=== PATIENT | male | born 1970 ===

== ENCOUNTER 2021-11-01 10:18 | Inpatient (IN) | payer OTHER ==
[~2021-11-01] VITALS: Ht 172.7 cm; Wt 73.1 kg
[2021-11-01 10:50] LABS: BASOPHILS ABSOLUTE AUTO 0.11 K/mm3 (0.00-0.23); BASOPHILS PERCENT AUTO 1 % (0-2); EOSINOPHILS ABSOLUTE AUTO 0.29 K/mm3 (0.00-0.68); EOSINOPHILS PERCENT AUTO 2 % (0-6); Hematocrit 41.6 % (37.0-53.0); IMMATURE GRAN ABSOLUTE AUTO 0.04 K/mm3 (0.00-0.10); IMMATURE GRAN PERCENT AUTO 0 % (0-1); LYMPHOCYTES ABSOLUTE AUTO 1.94 K/mm3 (0.84-5.20); LYMPHOCYTES PERCENT AUTO 16 % (21-46); MONOCYTES ABSOLUTE AUTO 0.74 K/mm3 (0.16-1.47); MONOCYTES PERCENT AUTO 6 % (4-13); Mean Corpuscular HGB 28.4 pg (26.0-34.0); Mean Corpuscular HGB Conc 33.7 g/dL (31.5-36.5); Mean Corpuscular Volume 84 fL (80-100); NEUTROPHILS ABSOLUTE AUTO 9.11 K/mm3 (1.96-9.15); NEUTROPHILS PERCENT AUTO 74 % (41-73); Platelet Count 354 K/mm3 (150-400); RDW Coefficient Variation 14.8 % (11.7-14.2); RDW Standard Deviation 44.6 fL (35.1-46.3); Red Blood Cell Count 4.93 M/mm3 (4.30-5.90); White Blood Cell Count 12.23 K/mm3 (4.00-11.30)
[2021-11-01 11:12] LABS: Albumin, Blood 3.6 g/dL (3.4-5.0); Albumin/Globulin Ratio 0.8 (0.8-1.8); Bilirubin, Total 1.1 mg/dL (0.1-1.0); Bun/Creatinine Ratio 17.7 (12.0-20.0); Calcium, Blood 8.7 mg/dL (8.5-10.1); Creatinine, Blood 1.86 mg/dL (0.60-1.20); Globulin, Blood 4.8 g/dL (2.2-4.0); Magnesium, Blood 2.4 mg/dL (1.6-2.4); Potassium, Blood 3.2 mmol/L (3.5-5.5); Total Protein, Blood 8.4 g/dL (6.4-8.2)
[2021-11-01 12:12] LABS: U Amphetamine Screen DETECTED; U Barbituate Screen Not Detected; U Benzodiazapine Screen Not Detected; U Buprenorphine Screen Not Detected; U Cannabinoids Screen DETECTED; U Cocaine Screen Not Detected; U Methadone Screen Not Detected; U Methamphetamine Screen DETECTED; U Opiates Screen Not Detected; U Oxycodone Screen Not Detected; U Phencyclidine Screen Not Detected; U Propoxyphene Screen Not Detected
[2021-11-01] MEDS ORDERED: AMLO10 PO (12:39)
[2021-11-01] MEDS ORDERED: ASPI81CH (12:39)
[2021-11-01] MEDS ORDERED: HYDRA25 PO ×2 (12:40→12:41)
[2021-11-01] MEDS ORDERED: Aspir 8181 MG PO (12:40)
[2021-11-01] MEDS ORDERED: FURO20 PO (12:42)
[2021-11-01] MEDS ORDERED: ISODIN10 PO (12:42)
[2021-11-01] MEDS ORDERED: ACET325 PO (12:43)
[2021-11-01] MEDS ORDERED: ATOR40TA PO (12:44)
--- NOTE | 2021-11-01 16:30 | NUR ---
PT MEDICATED WITH TYLENOL IN THE ER FOR HEADACHE. CIWA REFLECTS HEADACHE PT HAD PRIOR TO ARRIVAL ON MEDICAL UNIT.
--- NOTE | 2021-11-01 18:40 | NUR ---
ADMIT/SHIFT NOTE MR ULLOA WAS ADMITTED TO [facility] FROM ED AT 1625HRS. A&OX3, PERRL, EQUAL STRONG VIGOUREUX PRINTER, RIGHT ARM WEAKER THAN LEFT DUE TO ROTATOR CUFF INJURY. STRONG EQUAL LEG STRENGTH. LUNGS CLEAR, HR 90 TO 100S AND HR SOUNDS REGULAR. ON TELE, SR 90'S PER BUNK ASSEMBLER NADIR REPORT. ABDOMEN SOFT, NON TENDER, BOWEL SOUNDS ACTIVE. PIV RUE FLUSHED AND NAD. HE DENIES ANY SOB SINCE ARRIVAL TO [facility]. ON ROOM AIR. GIVEN 1800HRS 20MG LASIX DOSE IV. PALE YELLOW CLEAR URINE. TOLERATING DIET WELL, AND GOOD APPETITE. HX METH USE 2 WEEKS AGO, HE SAID HE'S USED IT FOR YEARS, HX OF CANNABIS USE ON MONDAY BOTH PER PT STATEMENT. DAILY SMOKER OF TOBACCO. HE PLANS TO DISCHARGE HOME TO HIS FATHER'S HOUSE IN [place]. HE IS UP INDEPENDANTLY AND HAS A STEADY GAIT TO THE BATHROOM. HE VERBALILSED UNDERSTANDING OF UNIT ROUTINES, CALL LIGHT, URINAL. HTN IN ER AND ON THE ADMISSION. HTN PRE LASIX, WILL RECHECK NOW.
[2021-11-01] MEDS ORDERED: CARV25 PO (19:00)
--- NOTE | 2021-11-01 19:00 | NUR ---
CALLED DR WAGONER, REPEAT BP AFTER SCHEDULED LASIX SHOWS DBP STILL OVER 100. CALLED AND RECIEVED A PRN ORDER FOR IV HYDRALIZINE
[2021-11-02 04:34] LABS: BASOPHILS ABSOLUTE AUTO 0.11 K/mm3 (0.00-0.23); BASOPHILS PERCENT AUTO 1 % (0-2); EOSINOPHILS ABSOLUTE AUTO 0.44 K/mm3 (0.00-0.68); EOSINOPHILS PERCENT AUTO 5 % (0-6); Hematocrit 39.5 % (37.0-53.0); Hemoglobin 13.1 g/dL (13.5-17.5); IMMATURE GRAN ABSOLUTE AUTO 0.03 K/mm3 (0.00-0.10); IMMATURE GRAN PERCENT AUTO 0 % (0-1); LYMPHOCYTES ABSOLUTE AUTO 2.04 K/mm3 (0.84-5.20); LYMPHOCYTES PERCENT AUTO 21 % (21-46); MONOCYTES ABSOLUTE AUTO 0.74 K/mm3 (0.16-1.47); MONOCYTES PERCENT AUTO 8 % (4-13); Mean Corpuscular HGB 28.1 pg (26.0-34.0); Mean Corpuscular HGB Conc 33.2 g/dL (31.5-36.5); Mean Corpuscular Volume 85 fL (80-100); Mean Platelet Volume 9.9 fL (9.1-12.4); NEUTROPHILS ABSOLUTE AUTO 6.28 K/mm3 (1.96-9.15); NEUTROPHILS PERCENT AUTO 65 % (41-73); Platelet Count 318 K/mm3 (150-400); RDW Coefficient Variation 14.8 % (11.7-14.2); RDW Standard Deviation 44.7 fL (35.1-46.3); Red Blood Cell Count 4.66 M/mm3 (4.30-5.90); White Blood Cell Count 9.64 K/mm3 (4.00-11.30)
[2021-11-02 04:54] LABS: Anion Gap 7 mmol/L (6-16); Blood Urea Nitrogen 38 mg/dL (8-24); Bun/Creatinine Ratio 17.8 (12.0-20.0); CHOL/HDL RATIO 2.8; CO2, Blood 25 mmol/L (21-32); Calcium, Blood 8.4 mg/dL (8.5-10.1); Chloride, Blood 106 mmol/L (98-108); Cholesterol 160 mg/dL (50-200); Creatinine, Blood 2.13 mg/dL (0.60-1.20); Glomerular Filtration Rate 33 (60-); Glucose, Blood 108 mg/dL (70-99); HDL Cholesterol 57 mg/dL (>39); LDL/HDL RATIO 1.5; Low Density Lipoprotein Chol 84 mg/dL (0-110); Potassium, Blood 3.2 mmol/L (3.5-5.5); Sodium, Blood 138 mmol/L (136-145); Triglycerides 96 mg/dL (30-160); Very Low Density Lipoprot Chol 19 mg/dL (6-32)
--- NOTE | 2021-11-02 05:24 | NUR ---
SHIFT SUMMARY AOX4. VERY ANXIOUS, FIGETY, RESTLESS, TEARFUL c RAPID SPEECH @BEGINNING OF SHIFT. BP ELEVATED, BEING MEDICATED c SCHEDULED PO HYDRALAZINE & ISOSORBIDE. TELE ST HR 100-115, OCCASIONALLY HR INCREASED TO 130-140 PER TELE PALLETIZER OPERATOR FOR ONLY 5 SEC & WOULD NOT SUSTAIN. FIRST CIWA 14 FOR ANXIETY, AGITATION & SEVERE YUN, MEDICATED c TYLENOL & 2MG IV ATIVAN. PT HAS BEEN CALM & RESTING SOUNDLY T/O NIGHT, EXCEPT UP TO USE RESTROOM. REPORTS LAST ETOH DRINK WAS 10/31/21 & STATES HE HASNT USED METH IN "ROUGHLY 2 WEEKS". DENIES N/V OR DYSPNEA @REST. PLAN TO HAVE ECHO TODAY. CALL LIGHT IN REACH. WCTM.
--- NOTE | 2021-11-02 17:42 | NUR ---
PATIENT SLEPT MOST OF THE DAY, WOKE FOR MEALS. CIWA'S 0 THIS SHIFT, NO SIGNS OF AGITATION OR WITHDRAW. B/P REMAINS ELEVATED, MEDICATIONS ADJUSTED TODAY TO TREAT. PATIENT IS FROM [place], BUT IS IN TOWN VISITING HIS DAD AND PLANS TO REMAIN IN [facility] AT DISCHARGE. LUNGS CLEAR/DIM, MAINTAINING SATS ON RA. INDEPENDENT WITH ADL'S. ST ON TELE 110-120, DENIES ANY CP OR PRESSURE. COOPERATIVE WITH CARE AND CALLS APPROPRIATELY FOR ASSISTANCE.
--- NOTE | 2021-11-03 04:01 | NUR ---
SHIFT SUMMARY NO ACUTE CHANGES TO REPORT THIS SHIFT. PT HYPERTENSIVE BUT TRENDING AROUND BASELINE SINCE ADMISSION. PT STATES THAT HIS BP IS NORMAL FOR HIM AND THAT HE HAS BEEN HYPERTENSIVE FOR YEARS. SCHEDULED CLONIDINE AND HYDRALZINE ORDERED. PT STILL HAS NOT RECEIVED ECHO RESULTS AND WOULD LIKE TO SPEAK WITH THE DR REGARDING THAT. ASSESSMENT UNCHANGED. BED IN LOWEST POSITION, CALL LIGHT WITHIN REACH.
[2021-11-03 05:31] LABS: Bun/Creatinine Ratio 16.2 (12.0-20.0); Calcium, Blood 8.6 mg/dL (8.5-10.1); Creatinine, Blood 2.16 mg/dL (0.60-1.20); Potassium, Blood 3.5 mmol/L (3.5-5.5)
--- NOTE | 2021-11-03 12:45 | NUR ---
AM NOTE MR ULLOA IS A&OX4. INDEPENDENT IN ROOM. CIWA SCALE 3. PT LOOKING FORWARD TO GETTING DISCHARGED FROM HOSPITAL, HE SPOKE WITH HIS MD THIS MORNING AND HAS A PLAN FOR LIKELY DISCHARGE TOMORROW SO HE PLANS TO RETURN TO [place] ON MONDAY. SOME SLIGHT ANXIETY THAT PT SAID IS NORMAL FOR HIM. HEADACHE HELPED BY PO TYLENOL. HIS FATHER IS IN THE ROOM WITH HIM. BED LOW, CALL LIGHT IN REACH, SIDE RAILS UP X2. CARDIOLOGY CONSULT REQUESTED.
--- NOTE | 2021-11-03 15:39 | NUR ---
WHILE SPEAKING TO DR REY SHE HAD MENTIONED THE PT HOME MEDS WERE GOING TO BE RESUMED PRIOR TO PT DISCHARGE, CALLED DR SIMMONS FOR ORDER LATER ONCE DC ORDERS WERE RECIEVED. ORDER PLACED THROUGH ORDER MANAGEMENT.
--- NOTE | 2021-11-03 19:33 | NUR ---
DISCHARGE NOTE- PT WAS GIVEN VERBAL AND WRITTEN DISCHARGE INSTRUCTIONS AND ACKNOWLWEDGED UNDERSTANDING OF THEM. PT IV AND TELE WERE DC'D AT THE TIME OF DISCHARGE, PT DRESSED HIMSELF AND WAS ESCORTED OUT TO THE PT ENTRANCE VIA WC BY THE LYE BOILER NO S&S OF DISTRESS NOTED AT THE TIME OF DISCHARGE. PRIOR TO DISCHARGE PT BP WAS CHECKED (134/99) PAGED DR REY (PER HER REQUEST) AND SHE APPROVED OF PT LEAVING NOW.
== END 2021-11-03 18:53 | disposition home or self-care (01) | DRG 917 ==
LOC: ER 10:18 → MEDS 13:14 → ENPENDDIS 11-03 18:03 → MEDS 11-03 18:53
PROVIDERS: Emergency Medicine; Family Medicine; Internal Medicine; Physician Assistant; ADMIT Internal Medicine
DX: T43.621A Poisoning by amphetamines, accidental (unintentional), initial encounter (principal); I50.23 Acute on chronic systolic (congestive) heart failure; N17.9 Acute kidney failure, unspecified; I16.1 Hypertensive emergency; J81.1 Chronic pulmonary edema; R65.10 Systemic inflammatory response syndrome (SIRS) of non-infectious origin without acute organ dysfunction; I11.0 Hypertensive heart disease with heart failure; I69.392 Facial weakness following cerebral infarction; I69.349 Monoplegia of lower limb following cerebral infarction affecting unspecified side; F10.20 Alcohol dependence, uncomplicated; E87.6 Hypokalemia; F15.10 Other stimulant abuse, uncomplicated; F17.210 Nicotine dependence, cigarettes, uncomplicated; Z79.82 Long term (current) use of aspirin; Z79.899 Other long term (current) drug therapy; Z53.29 Procedure and treatment not carried out because of patient's decision for other reasons
CPT/HCPCS: 36415; 36416; 71045; 76700; 80048; 80053; 80061; 83036; 83690; 83735; 83880; 84443; 84484; 85025; 93005; 93010; 93306; 96372-59; 96374; 96375; 99285-25; A9270; J1644; J1940; J2060

== ENCOUNTER 2023-02-13 13:23 | Emergency (ER) | payer MEDICAID ==
[~2023-02-13] VITALS: Ht 172.7 cm; Wt 74.8 kg
[~2023-02-13 13:23] MED LIST: ACET325 PO; AMLO10 PO; ASPI81CH; ATOR40TA PO; Aspir 8181 MG PO; CARV25 PO; FURO20 PO; HYDRA25 PO; ISODIN10 PO
[2023-02-13 13:40] VITALS: BP 135/65
[2023-02-13] MEDS ORDERED: Ultram50 MG PO (13:49)
[2023-02-13] MEDS ORDERED: AMOCLA875 PO (13:49)
== END 2023-02-13 14:10 | disposition home or self-care (01) ==
LOC: ER 13:23
DX: K04.7 Periapical abscess without sinus (principal); K02.9 Dental caries, unspecified; I50.9 Heart failure, unspecified; F17.200 Nicotine dependence, unspecified, uncomplicated; Z79.82 Long term (current) use of aspirin; Z79.899 Other long term (current) drug therapy
CPT/HCPCS: 10160; 99282-25